=== PATIENT | male | born 1950 | race Caucasian/White ===

== ENCOUNTER 2016-09-15 06:41 | Day surgery (SDC) | payer MEDICARE, MEDICAID ==
--- NOTE | 2016-09-15 06:32 | History and Physical Report ---
DATE OF EVALUATION: 09/14/2016. CHIEF COMPLAINT AND HISTORY OF CHIEF COMPLAINT: This patient presents with a post cervical laminectomy radiculitis. He has a spinal infusion system in place infusing hydromorphone. Over the last refill it was identified that he had battery depletion. He is here for pump battery replacement on an outpatient basis. PAST MEDICAL HISTORY: Chronic obstructive lung disease, hypertension, seizure disorder, gastritis. REVIEW OF SYSTEMS: The patient is appropriate. SOCIAL HISTORY: Noncontributory. FAMILY HISTORY: Coronary artery disease. PAST SURGICAL HISTORY: Cervical spine fusion, elbow surgery, spinal cord stimulator, spinal infusion device, gallbladder surgery. ALLERGIES: None. MEDICATIONS ON ADMISSION: To be provided. PHYSICAL EXAMINATION: General: Height and weight are unknown. Vital Signs: Unavailable. HEENT: Within normal limits. Lungs: Clear. Heart: Regular rate and rhythm. Abdomen: Nontender. Musculoskeletal: Examination of the musculoskeletal system shows the pump in the right posterosuperior gluteal margin. The incision is intact. Sensory harrison are intact. Neurologic: Cranial nerves are intact. IMPRESSIONS: 1. POSTCERVICAL LAMINECTOMY SYNDROME, ICD10 CODE M96.1. 2. CERVICAL RADICULITIS, ICD10 CODE M54.13. 3. SPINAL INFUSION SYSTEM WITH HYDROMORPHONE, DEPLETED BATTERY. PLANS: The patient is here for battery replacement and reinitiation of infusion therapy. The procedure will be considered outpatient. All of the potential risks, side effects, and complications have been carefully reviewed and discussed. Fawad Garza D.O. Date Time JOB NUMBER: [id number] cc: Mayte Rucker
[~2016-09-15 06:41] MED LIST: ACETAMINOPHEN 1000MG/100 ML PREMIX IV ONE; CEFAZOLIN 2 Gram 50 ML IVPB ONE; FAMOTIDINE 20MG TABLET PO ONE; HYDROMORPHONE HCL 0.4 GM in 0.9 % SODIUM CHLORIDE 10ML VIA 20 ML IV ONE; HYDROMORPHONE HCL/PF 0.002 MG in 0.9 % SODIUM CHLORIDE 10ML VIA 0.998 ML IVP ONE; MECLIZINE 25 MG TABLET PO ONE; METOCLOPRAMIDE 10 MG TABLET PO ONE
[2016-09-15] MEDS ORDERED: CEFAZOLIN 1G VIAL IM ONE (13:25)
[2016-09-15] MEDS ORDERED: BUPIVACAINE 0.5% W/EPI MPF 30 ML VIAL IVP ONE (13:25)
[2016-09-15] MEDS ORDERED: LIDOCAINE 1% W/EPI 1:200,000 MPF 30ML SQ ONE (13:25)
[2016-09-15] MEDS ORDERED: DEXMEDETOMIDINE HCL 200 MCG/2 ML VIAL IV ONE (16:09)
[2016-09-15] MEDS ORDERED: FLUMAZENIL 1MG/10ML VIAL IV ONE (16:09)
[2016-09-15] MEDS ORDERED: MIDAZOLAM HCL 2MG/2ML VIAL IV ONE (16:09)
[2016-09-15] MEDS ORDERED: FENTANYL PF 100MCG/2ML VIAL IV ONE (16:09)
[2016-09-15] MEDS ORDERED: *PACU ONLY* KETAMINE HCL 10 MG/ML (20ML) VIAL IV ONE (16:09)
--- NOTE | 2016-09-17 10:31 | Operative Note ---
PAIN SERVICE OPERATIVE REPORT DATE OF PROCEDURE: 09/15/2016. PREOPERATIVE DIAGNOSES: 1. POSTCERVICAL LAMINECTOMY SYNDROME, ICD10 CODE M96.1. 2. CERVICAL RADICULITIS, ICD10 CODE M54.13. 3. PROGRAMMABLE PUMP FOR SPINAL OPIOID INFUSION SYSTEM WITH HYDROMORPHONE BATTERY DEPLETION. PROCEDURES: 1. Fluoroscopically guided incision, subcutaneous dissection, removal, and replacement of programmable pump identified as a 20 mL [employer]. 2. Catheter resection pouch interfaced with indwelling catheter to a secondary catheter component, removing matted, scarred, and kinked catheter. 3. Interface revised catheter to pump, securing it to the posterior fascia at the right posterosuperior gluteal margin with nonabsorbable suture at two points through pump eyelets. 4. With pump into pouch, 24-gauge Chatman needle inserted into access port clearing catheter of 1.0 mL of catheter contents and opioid. 5. Diagnostic myelography with radiologic supervision and interpretation using access port confirming flow characteristics and catheter tip position at T7-8. 6. Closure of incision with Vicryl for fascia and running subcuticular Vicryl for skin. Dermabond closure. 7. Programming of pump to deliver by continuous infusion hydromorphone at 2.1 mg per day. SURGEON: Fawad Garza D.O. ANESTHESIA: Local sedation. ANESTHESIA PROVIDER: Yolanda Lima CRNA. INDICATIONS: This patient presents with a history of an intractable cervical radiculitis and a spinal opioid infusion system infusing hydromorphone. Over the last refills, his pump has been identified at end of life. He is here for replacement of the pump. DESCRIPTION OF PROCEDURE: Intravenous line, vital sign monitoring, and IV sedation. Prepped and draped with sterile technique with the patient prone. At the right posterosuperior gluteal margin the incision was infiltrated with local. The pump pouch was opened, and the pump was cut from the retaining suture and exteriorized. The pump was from the indwelling catheter. A new pump, 20 mL programmable prefilled with hydromorphone, was brought onto the field. The indwelling catheter connection to the pump was visualized in the pouch, matted and kinked in scar tissue. The catheter was resected and removed, and a new catheter component interfaced to the indwelling catheter component. This new resected catheter was then interfaced to the new pump placed onto the field. A 24-gauge Chatman needle was then inserted into the access port of the pump, and 1.0 mL of catheter contents was aspirated, clearing the catheter of opioid and cerebrospinal fluid mixture. The pump was then placed into the existing pouch. The pouch was slightly revised to accommodate the pump. A suture was used to secure the pump to the posterior fascia using pump eyelets and nonabsorbable suture. A 24-gauge Chatman needle was inserted into the access port, and then diagnostic myelography was performed. The resulting flow characteristics through the pump and the catheter demonstrated appropriate connections and no leaks or kinks. The catheter tip identified at T7-8 with smooth linear flow of contrast in the spinal space. The incision was closed using Vicryl to the fascia and running subcuticular Vicryl to the skin. Dermabond was then placed over the incision. The pump was then programmed to deliver by continuous infusion hydromorphone at 2.1 mg per day which was his initial base rate. He was transported to the recovery room stable showing no side effects from the procedure or the sedation. DISCHARGE INSTRUCTIONS: 1. The sites will remain clean and dry, although the Dermabond will allow him to shower. 2. Standard medications may be resumed including the antibiotic Levaquin 500 mg once a day for 14 days. 3. Spinal opioid side effects including respiratory depression, nausea, vomiting, constipation, urinary retention, lightheadedness, and rash have all been discussed and reviewed. 4. All other instructions were provided, numbers to contact, and problems given. He was then prepared for discharge. Fawad Garza D.O. Date Time JOB NUMBER: [id number] cc: Mayte Rucker
--- NOTE | 2016-09-21 09:20 | RADIOLOGY REPORT ---
EXAM: AP THORACOLUMBAR SPINE HISTORY: POST PAIN PUMP PLACEMENT. TECHNIQUE: A single AP view of the thoracolumbar spine was obtained. Comparison: AP thoracolumbar spine 01/14/10. FINDINGS: There is a tear shaped metallic battery pack overlying the right lower quadrant with a single catheter extending from this up to the level of what is presumed to be the T7 vertebra. This is new compared to the prior study and some previously seen electrode leads overlying the lower thoracic and lumbar region have been removed. Elongated calcification right upper quadrant laterally approximately 3.4 cm in length again seen as before. Thoracolumbar curve to the left. IMPRESSION: BATTERY PACK RIGHT LOWER QUADRANT WITH THE CATHETER TIP EXTENDING UP TO THE LEVEL OF THE T7 VERTEBRA. THORACOLUMBAR CURVE TO THE LEFT. JOB NUMBER: [id number] MTDD
== END 2016-09-15 11:03 | disposition home or self-care (01) ==
LOC: SUR 06:41
PROVIDERS: ATTEND Pain Medicine Interventional Pain Medicine
DX: Z45.1 Encounter for adjustment and management of infusion pump (principal); M96.1 Postlaminectomy syndrome, not elsewhere classified; M54.13 Radiculopathy, cervicothoracic region; Z79.01 Long term (current) use of anticoagulants; E78.00 Pure hypercholesterolemia, unspecified; I10 Essential (primary) hypertension; E03.9 Hypothyroidism, unspecified
CPT/HCPCS: 62367; 72020; 62362; 00300; Q9967; J1170; J3010; J0690; J3490

== ENCOUNTER 2017-07-27 10:51 | Day surgery (SDC) | payer MEDICARE ==
--- NOTE | 2017-07-27 05:18 | History and Physical Report ---
DATE: 07/26/2017. CHIEF COMPLAINT AND HISTORY OF CHIEF COMPLAINT: This is a patient with a history of intractable radiculitis with a spinal cord stimulator internal generator. He is here for a generator replacement. PAST MEDICAL HISTORY: Chronic obstructive pulmonary disease, hypertension, seizure disorder, gastritis. PAST SURGICAL HISTORY: Cervical spine fusion, elbow surgery, stimulator placement, pump placement, gallbladder surgery. MEDICATIONS ON ADMISSION: To be provided. ALLERGIES: To be provided. SOCIAL HISTORY: Noncontributory. FAMILY HISTORY: Coronary artery disease. REVIEW OF SYSTEMS: The patient is appropriate and in no acute distress. PHYSICAL EXAMINATION: General: Height and weight are not available. Vital Signs: Unavailable. HEENT: Within normal limits. Lungs: Clear. Heart: Regular rate and rhythm. Abdomen: Nontender. Musculoskeletal: Examination of the musculoskeletal system shows the internal pulse generator pouch to be intact. His primary pain pattern is in the neck, shoulders, and arms bilaterally, as well as the low back, hips, and legs bilaterally. Neurologic: Cranial nerves are intact. No abnormal or new onset sensory field or motor abnormalities. IMPRESSION: 1. CERVICAL LUMBAR RADICULITIS, ICD-10 CODE M54.13 AND M54.16. 2. SPINAL CORD STIMULATOR WITH INTERNAL GENERATOR BATTERY DEPLETION. PLAN: The patient is here for replacement of the internal pulse generator for the stimulator. The procedure will be considered outpatient; an overnight stay should not be required. JOB NUMBER: [id number] cc: Lauren Mccann M.D. MTDPatricia
[~2017-07-27 10:51] MED LIST changes: +ACETAMINOPHEN 1,000 MG/100 ML BTL IV ONE; -ACETAMINOPHEN 1000MG/100 ML PREMIX IV ONE; +CEFAZOLIN 2 Gram 2 GM/50 ML BAG IVPB ONE; -CEFAZOLIN 2 Gram 50 ML IVPB ONE; -HYDROMORPHONE HCL 0.4 GM in 0.9 % SODIUM CHLORIDE 10ML VIA 20 ML IV ONE; -HYDROMORPHONE HCL/PF 0.002 MG in 0.9 % SODIUM CHLORIDE 10ML VIA 0.998 ML IVP ONE
[2017-07-27] MEDS ORDERED: CEFAZOLIN 1G VIAL IM ONE (10:52)
[2017-07-27] MEDS ORDERED: MIDAZOLAM HCL 2MG/2ML VIAL IV ONE (10:52)
[2017-07-27] MEDS ORDERED: BUPIVACAINE 0.75% W/EPI MPF 30ML VIAL IVP ONE (10:52)
[2017-07-27] MEDS ORDERED: LIDOCAINE 1% W/EPI 1:200,000 MPF 30ML SQ ONE (10:52)
[2017-07-27] MEDS ORDERED: FENTANYL PF 100MCG/2ML VIAL IV ONE (10:52)
[2017-07-27] MEDS ORDERED: PROPOFOL 10 MG/ML VIAL IV ONE (10:52)
[2017-07-27] MEDS ORDERED: *PACU ONLY* KETAMINE HCL 10 MG/ML (20ML) VIAL IV ONE (10:52)
--- NOTE | 2017-07-28 15:17 | Operative Note - [place] ---
DATE OF SURGERY: 07/27/17 PREOPERATIVE DIAGNOSES: 1. POST CERVICAL LAMINECTOMY SYNDROME. 2. INTRACTABLE CERVICAL AND LUMBAR RADICULITIS. 3. SPINAL CORD STIMULATOR INTERNAL GENERATOR BATTERY DEPLETION. OPERATION: INCISION, SUBCUTANEOUS DISSECTION, REMOVAL, AND REPLACEMENT OF INTERNAL PULSE GENERATOR. SURGEON: KIMBERLEY PAGE D.O. ANESTHESIA: LOCAL SEDATION. ANESTHESIA PROVIDER: QUITA GOMEZ CRNA INDICATION: This patient presents with a history of intractable radiculitis managed through spinal cord stimulation of his cervical spine. A stimulator generator had been identified as depleting, over the last number of weeks complete discontinuation of functionality. He was evaluated and felt that a replacement of the generator was appropriate. He was given the option and he opted to replace the generator. PROCEDURE: Intravenous line, vital sign monitoring, IV sedation. Prepped and draped sterile technique. Under imaging, generator at the right mid axillary line was marked, skin infiltrated, incision made, and subcutaneous dissection was conducted to the incision. The generator pouch was then opened and the generator exteriorized. It was from the leads. A new generator was placed onto the field, Patient [employer] Nonrechargeable, was then interfaced with the leads. Antibiotic irrigation and Bovie for hemostasis. The generator was secured to the pouch with a nonabsorbable suture and then the incision was closed Vicryl for fascia, running subcuticular Vicryl for skin. Dermabond closure. He was transported to the Recovery Room stable showing no side-effect from the procedure or the sedation. DISCHARGE INSTRUCTIONS: 1. The sites will remain clean and dry. He may shower in 24-48 hours. 2. The office will call the patient in 5-7 days to set up the evaluation to check his incision in a week to 10 days. 3. Standard medications resumed including the antibiotic, Levaquin, 500 mg once a day. He can restart his anticoagulants based on Cardiology. All other instructions provided, numbers to contact given. He was then discharged. cc: Dr. Mccann JOB NUMBER: [id number] MTDD
== END 2017-07-27 15:25 | disposition home or self-care (01) ==
LOC: SUR 10:51
PROVIDERS: ATTEND Pain Medicine Interventional Pain Medicine
DX: T85.193A Other mechanical complication of implanted electronic neurostimulator, generator, initial encounter (principal); I10 Essential (primary) hypertension; I48.91 Unspecified atrial fibrillation; I25.2 Old myocardial infarction; Z95.1 Presence of aortocoronary bypass graft
CPT/HCPCS: 85730; J0690; J3490